=== PATIENT | male | born 1960 ===

== ENCOUNTER 2017-08-22 14:59 | Inpatient (IN) | payer MEDICAID, OTHER ==
[2017-08-22 16:08] LABS: HEMOGLOBIN 15.4 g/dL (12.0-18.0); MEAN PLATELET VOLUME 9.4 fL (7.2-11.7)
[2017-08-22 16:13] LABS: MEAN CELL VOLUME 88.1 fL (80.0-94.0); MEAN CORPUSCULAR HEMOGLOBIN 30.4 pg (27.0-31.0); MEAN CORPUSCULAR HGB CONC 34.5 g/dL (33.0-37.0); RBC 5.08 Mil/uL (4.40-5.90); RED CELL DISTRIBUTION WIDTH 13.1 % (11.5-14.5); WHITE BLOOD COUNT 5.7 K/uL (4.8-10.8)
--- NOTE | 2017-08-22 16:21 | C.PDOC ---
History Of Present Illness <John Couch - Last Filed: 08/22/17 17:34> <Bhumika Garcia - Last Filed: 08/22/17 17:47> 57 yo male w/PMHx of heroin abuse come in request detox. Pt denies depression, suicidal or homocidal ideation. Pt denies any active physical complaints at present time. Ambulate to ED for evaluation, appears AAO#3, appropriate, not in any apparent distress. (Bhumika Garcia) <John Couch - Last Filed: 08/22/17 17:34> History Per: Patient <Bhumika Garcia - Last Filed: 08/22/17 17:47> Time Seen by Provider: 08/22/17 15:25 Chief Complaint (Nursing): Substance Abuse Past Medical History Reviewed: Historical Data, Nursing Documentation, Vital Signs - Medical History PMH: HTN Denies: Diabetes, Hepatitis, HIV, Seizures, Sexually Transmitted Disease Family History: States: Unknown Family Hx - Social History Hx Tobacco Use: Yes Hx Alcohol Use: No Hx Substance Use: Yes - Immunization History Hx Tetanus Toxoid Vaccination: Yes Hx Influenza Vaccination: Yes Hx Pneumococcal Vaccination: Yes <Bhumika Garcia - Last Filed: 08/22/17 17:47> Vital Signs: Last Vital Signs Temp 98.3 F 08/22/17 17:41 Pulse 53 L 08/22/17 17:41 Resp 18 08/22/17 17:41 BP 157/97 H 08/22/17 17:41 Pulse Ox 99 08/22/17 17:41 - [facility] DETOXIFICATION SERVICES FOR SUBSTANCE ABUSE TREATMENT (05/17/16) Review Of Systems Except As Marked, All Systems Reviewed And Found Negative. Constitutional: Negative for: Fever, Chills Eyes: Negative for: Vision Change ENT: Negative for: Throat Pain Cardiovascular: Negative for: Chest Pain Respiratory: Negative for: Cough, Shortness of Breath, Wheezing Gastrointestinal: Negative for: Nausea, Vomiting, Abdominal Pain Genitourinary: Negative for: Incontinence Musculoskeletal: Negative for: Neck Pain, Back Pain Neurological: Negative for: Weakness, Numbness, Altered Mental Status, Headache Psych: Negative for: Suicidal ideation <Bhumika Garcia - Last Filed: 08/22/17 17:47> Physical Exam - Physical Exam Appears: Well, Non-toxic, No Acute Distress Skin: Normal Color, Warm, Dry, No Rash, No Ecchymosis Head: Atraumatic, Normacephalic Eye(s): bilateral: PERRL Nose: No Flaring, No Discharge, No Deformity Oral Mucosa: Moist Throat: No Erythema, No Drooling Neck: Trachea Midline, No Midline Cervical Tenderness, No Paracervical Tenderness, No Step Off Deformity, Supple Cardiovascular: Rhythm Regular Respiratory: No Decreased Breath Sounds, No Accessory Muscle Use, No Rales, No Rhonchi, No Stridor, No Wheezing Gastrointestinal/Abdominal: Soft, No Tenderness, No Distention, No Guarding, No Rebound Back: No CVA Tenderness Extremity: Normal ROM, No Deformity, No Swelling Neurological/Psych: Oriented x3, Normal Speech, Normal Motor, Normal Sensation, Normal Reflexes <Bhumika Garcia - Last Filed: 08/22/17 17:47> ED Course And Treatment - Laboratory Results Result Diagrams: 08/22/17 16:05 08/22/17 16:05 Lab Interpretation: Abnormal (tox + opiates, THC) Pulse Ox Interpretation: Normal Reevaluation Time: 17:34 Reassessment Condition: Unchanged (remains stable) <John Couch - Last Filed: 08/22/17 17:34> - Laboratory Results Result Diagrams: 08/22/17 16:05 08/22/17 16:05 O2 Sat by Pulse Oximetry: 98 Pulse Ox Interpretation: Normal <Bhumika Garcia - Last Filed: 08/22/17 17:47> Medical Decision Making <John Couch - Last Filed: 08/22/17 17:34> <Bhumika Garcia - Last Filed: 08/22/17 17:47> Medical Decision Making: opiate/cannabis abuse (John oCuch) Disposition Doctor Will See Patient In The: Hospital Counseled Patient/Family Regarding: Studies Performed, Diagnosis - Disposition Disposition Time: 18:00 <John Couch - Last Filed: 08/22/17 17:34> <Bhumika Garcia - Last Filed: 08/22/17 17:47> - Disposition Disposition: HOSPITALIZED Condition: GOOD Forms: [facility] (Kyr[place]z) - Clinical Impression Clinical Impression: Opiate abuse, continuous
[2017-08-22 16:22] LABS: URINE BILIRUBIN 1+ (NEGATIVE); URINE BLOOD 1+ (NEGATIVE); URINE CLARITY Hazy (Clear); URINE COLOR Amber (YELLOW); URINE GLUCOSE (UA) NORMAL (Normal); URINE LEUKOCYTE ESTERASE NEG Leu/uL (Negative); URINE PROTEIN 2+ mg/dL (NEGATIVE)
[2017-08-22 16:23] LABS: ALB/GLOB RATIO 1.2 (1.0-2.1); ALBUMIN 4.9 g/dL (3.5-5.0); ALT/SGPT 70 U/L (21-72); AST/SGOT 40 U/L (17-59); BLOOD UREA NITROGEN 12 mg/dL (9-20); CALCIUM 9.4 mg/dl (8.6-10.4); GFR AFRICAN-AMERICAN > 60; GFR NON-AFRICAN AMERICAN > 60
[2017-08-22 16:57] LABS: BARBITURATES, UR NEGATIVE (NEGATIVE); BENZODIAZEPINES, UR NEGATIVE (NEGATIVE); PHENCYCLIDINE, UR NEGATIVE (NEGATIVE)
[2017-08-22 17:30] LABS: OPIATES, UR POSITIVE (NEGATIVE)
[2017-08-22 17:44] LABS: BASO % 2.5 % (0.0-2.0); EOS % 0.4 % (0.0-4.0); LYMPH % 11.9 % (20.0-40.0); MONO % 4.7 % (0.0-10.0); NEUT % 80.5 % (50.0-75.0)
[2017-08-22 17:45] LABS: BASO # 0.1 K/uL (0.0-0.2); LYMPH # 0.6 K/uL (1.0-4.3); MONO # 0.3 K/uL (0.0-0.8); NEUT # 4.3 K/uL (1.8-7.0)
--- NOTE | 2017-08-22 18:16 | PCM.BM ---
<Andrzej Benz - Last Filed: 08/22/17 18:40> Treatment Plan Problems - Problems identified on initial assessmt potential for opiate withdrawal Date Initiated: 08/22/17 Time Initiated: 18:41 Assessment reference: NA Status: Active Treatment assets and liabiliti Patient Assests: ADL independent, negotiates basic needs, cognitively intact Patient Liabilities: substance abuse - Milieu Protocol Maintain good personal hygiene: daily Encourage regular showers, daily Remind patient to perform daily oral care, daily Assist patient to perform ADL's Conduct patient checks and document Observation sheet: Q15 minutes Maintain personal safety: every shift Educate patient to report safety concerns to staff, every shift Monitor environment for contraband/sharps Medication safety: Monitor for expected outcome, potential side effects: every shift, Assess barriers to learning: every shift, Assess readiness for medication education: every shift <Ector Foy - Last Filed: 08/25/17 01:26> - Diagnosis (1) Opioid use disorder, severe, dependence Status: Acute Interventions: 08/25/17 01:26 * Assess 7x/week regarding severity of withdrawal * Educate regarding risks, benefits, side effects and alternatives of medications * Use Motivational Interviewing for abstinence * Use CBT for relapse prevention * Medication management for withdrawal symptoms * Encourage medication assisted treatment (2) Cannabis use disorder, moderate, dependence Status: Acute Interventions: 08/25/17 01:26 * Assess 7x/week regarding severity of withdrawal * Educate regarding risks, benefits, side effects and alternatives of medications * Use Motivational Interviewing for abstinence * Use CBT for relapse prevention * Medication management for withdrawal symptoms * Encourage medication assisted treatment
[2017-08-22] MEDS ORDERED: Aluminum Hydroxide/Magnesium Hydroxide Susp (30 mL) PO PRN (20:12)
--- NOTE | 2017-08-23 11:27 | PCM.PSYCH ---
Initial Psychiatric Evaluation - Initial Psychiatric Evaluation Type of Admission: Voluntary Legal Status: Capacity Chief Complaint (in patient's own words): I need help for my heroin and other substance use. History of Present Illness and Precipitating Events: Patient is a 57 years old, single, part-time employed, male with no psychiatric history, was admitted due to withdrawing from heroin and other substance use. Patient started using heroin at 18 years of age, increased gradually up to 10- 15 bags daily, IV. Last used yesterday, 2 bags. His longest period of abstinence was 11 months from April 2016 to March 2017. Relapsed 4 months ago. Cannabis started around 18 years of age, increased gradually. Currently he was using once a week, 1 g each time. Last used one week ago. He smokes 5-6 cigarettes daily and refused to take nicotine patch. Patient has history of cocaine use in the remote past. Patient was born in [place], moved to [facility] in [place] at 5 years of age with family. He has high school graduation and is working part-time in food processing. Never and has one grown up son. He lives with his son. His height is 5 feet 4 inches and weight is 164 pounds. Current Medications: Active Medications Generic Name Dose Route Start Last Admin Trade Name Freq PRN Reason Stop Dose Admin Al Hydrox/Mg Hydrox/Simethicone 30 ml 08/22/17 20:12 Maalox 30 Ml PO TID PRN Indigestion / Heartburn Dicyclomine HCl 10 mg 08/22/17 20:13 Bentyl PO Q6 PRN Abdominal Cramp Gabapentin 300 mg 08/22/17 20:15 08/23/17 09:15 Neurontin PO 300 mg BID DINO Administration Ibuprofen 400 mg 08/22/17 20:15 08/23/17 08:03 Motrin Tab PO 400 mg Q6 PRN Administration Pain, moderate (4-7) Loperamide HCl 2 mg 08/22/17 20:12 Imodium PO Q8 PRN Diarrhea Methadone HCl 15 mg 08/23/17 10:00 08/23/17 09:15 Methadone PO 08/26/17 09:59 15 mg DAILY DINO Administration Taper Ondansetron HCl 4 mg 08/22/17 20:12 Zofran Tab PO Q8 PRN Nausea/Vomiting Quetiapine Fumarate 50 mg 08/23/17 22:00 Seroquel PO HS DINO Past Psychiatric History - Past Psychiatric History History of Abuse: None reported History of ETOH/Drug Use: See HPI History of Family Illness: None reported Pertinent Medical Hx (Current Medical&Sleep Prob, Allergies): Allergies Allergy/AdvReac Type Severity Reaction Status Date / Time No Known Allergies Allergy Unverified 08/22/17 15:14 No Known Home Med 08/22/17 Hypertension Review of Systems - Psychiatric Psychiatric: Anxiety, Other Mental Status Examination - Personal Presentation Personal Presentation: Looks stated age - Affect Affect: Other (Appropriate) - Motor Activity Motor Activity: Calm - Reliability in Providing Information Reliability in Providing Information: Fair - Speech Speech: Organized - Mood Mood: Anxious - Formal Thought Process Formal Thought Process: No Impairment - Hallucinations/Delusions Hallucinations: Other (None reported) Delusions: Other - Obsessions/Compulsions Obsessions: None Compulsions: None - Cognitive Functions Orientation: Person, Place, Situation, Time Sensorium: Alert Attention/Concentration: Attentive Abstract Thinking: [place] Estimate of Intelligence: Average Judgement: Intact, as evidence by: Insight regarding need for hospitalization Memory: Recent intact, as evidence by: Ability to recall events of the day, Remote intact, as evidenced by: Ability to recall historical events - Risk Risk: Withdrawal, Diminished functioning - Strength & Assets Inventory Strength & Assets Inventory: Family support, Employment status, Cooperative - Limitations Limitations: Other DSM 5 DX - DSM 5 DSM 5 Diagnosis: Opiate use disorder severe Cannabis use disorder moderate - Recommended/Plan of Treatment Treatment Recommendations and Plan of Treatment: Patient education Supportive therapy CBT for relapse prevention MRI for abstinence We'll start methadone taper for opiate withdrawal symptoms. Patient preferred methadone over Subutex. Other when necessary medications. Patient wants to go to long-term rehabilitation after discharge from the hospital for follow-up care. Projected ELOS: 4-5 days - Smoking Cessation Smoking Cessation Initiated: No Reason for not providing: Patient refused
--- NOTE | 2017-08-24 07:28 | PCM.PYCHPN ---
Psychiatric Progress Note - Psychiatric Progress Note Patient seen today, length of contact: 15 min Patient Chief Complaint: I am still withdrawing Problems Identified/Issues Discussed: Patient seen and evaluated, chart reviewed and discussed with the nurse. Patient still reports withdrawal symptoms including nausea, headaches, cramps and sweating. He reports irritable mood but denies any feelings of hopelessness and helplessness. He denies any SI/HI/AVH. Patient remained isolated, confined and withdrawn. He is taking medication and denies any side effects. He needs more time for stabilization. Supportive therapy and psychoeducation were given. Medication Change: Yes (methadone taper) Medical Record Reviewed: Yes Mental Status Examination - Cognitive Function Orientation: Person, Place, Situation, Time Memory: Intact Attention: WNL Concentration: Poor Association: WNL Fund of Knowledge: Poor - Mood Mood: Anxious - Affect Affect: Constricted - Speech Speech: Soft - Formal Thought Process Formal Thought Process: No Impairment - Suicidal Ideation Suicidal Ideation: No - Homicidal Ideation Homicidal Ideation: No Goal/Treatment Plan - Goal/Treatment Plan Need for Continued Stay: Severe depression anxiety, Severe functional impairment Progress Toward Problem(s) and Goals/Treatment Plan: Opiate use disorder severe Cannabis use disorder moderate Patient education Supportive therapy CBT for relapse prevention MRI for abstinence We'll start methadone taper for opiate withdrawal symptoms. Patient preferred methadone over Subutex. Other when necessary medications. Patient wants to go to long-term rehabilitation after discharge from the hospital for follow-up care. - Smoking Cessation Smoking Cessation Initiated: No
--- NOTE | 2017-08-25 13:48 | PCM.PYCHPN ---
Psychiatric Progress Note - Psychiatric Progress Note Patient seen today, length of contact: 15 min Patient Chief Complaint: "I am still withdrawing." Problems Identified/Issues Discussed: The patient is seen, chart reviewed, case discussed with staff. Support given, CBT and UT used briefly. No new symptoms reported, improving slowly and needs more time. He states he is sleeping well. No side effects from medications, risk discussed. After care discussed. Medication Change: Yes (methadone taper) Medical Record Reviewed: Yes Mental Status Examination - Cognitive Function Orientation: Person, Place, Situation, Time Memory: Intact Attention: WNL Concentration: Poor Association: WNL Fund of Knowledge: Poor - Mood Mood: Anxious - Affect Affect: Constricted - Speech Speech: Soft - Formal Thought Process Formal Thought Process: No Impairment - Suicidal Ideation Suicidal Ideation: No - Homicidal Ideation Homicidal Ideation: No Goal/Treatment Plan - Goal/Treatment Plan Need for Continued Stay: Severe depression anxiety, Severe functional impairment Progress Toward Problem(s) and Goals/Treatment Plan: Continue medications Support and psychoeducation daily Attend groups and activities daily After care planning by NEEL
[2017-08-26 06:20] VITALS: TEMP 98.6
--- NOTE | 2017-08-26 08:43 | PCM.PYCHDC ---
Mental Status Examination - Mental Status Examination Orientation: Person, Place, Situation, Time Memory: Intact Mood: Anxious Affect: Constricted Speech: Appropriate Attention: WNL Concentration: WNL Association: WNL Fund of Knowledge: WNL Formal Thought Process: No Impairment Suicidal Ideation: No Current Homicidal Ideation?: No Discharge Summary - Discharge Note Reason for Hospitalization: Heroin detox Consultations:: List each consultation separately and include: 1. Reason for request. 2. Findings. 3. Follow-up Summary of Hospital Course include:: 1. Description of specific treatment plan utilized for patients during their course of treatmen. 2. Summarize the time- course for resolution of acute symptoms and/or regressed behaviors. 3. Describe issues identified and worked on during hospitalization. 4. Describe medication utilized. 5. Describe medical problems identified and treated. 6. Reassessment of suicide risk Summary of Hospital Course: The pt was admitted and started on treatment with psychotherapy, support, psychoeducation and medications. WI and CBT used. The pt attended groups and activities, as well as milieu therapy. All the risks and benefits of medications are discussed and the patient understood and agreed. The pt improved with the treatments provided. After care discussed with the patient. [facility] - Final Diagnosis (DSM 5) Condition upon Discharge: GOOD DSM 5: Opioid withdrawal Opioid use disorder severe Cannabis use disorder moderate Disposition: HOME/ ROUTINE Follow-up Treatment Plan: Continue below medications after discharge. Follow after care plan as discussed. Use relapse prevention skills Return to ER or call 911 if suicidal, homicidal or symptoms relapse. Stay away from stress, alcohol and drugs. See primary doctor regularly and get labs. Prescriptions/Medication Reconciliation: Gabapentin [Neurontin] 300 mg PO BID #60 cap QUEtiapine [SEROquel] 50 mg PO HS #30 tab - Smoking Cessation Smoking Cessation Medication prescribed: No - Antipsychotic Medications Pt discharged on 2 or more routine antipsychotic medications: No
[2017-08-26 09:00] VITALS: BP 142/82; PULSE 56; RESP 20; O2SAT 100
== END 2017-08-26 10:00 | disposition home or self-care (01) | DRG 895 ==
LOC: C.ER 14:59 → C.7D 17:35
PROC: HZ2ZZZZ Detoxification Services for Substance Abuse Treatment (ICD-10-PCS; principal; 2017-08-22)
PROC: HZ52ZZZ Individual Psychotherapy for Substance Abuse Treatment, Cognitive-Behavioral (ICD-10-PCS; 2017-08-22)
PROC: HZ59ZZZ Individual Psychotherapy for Substance Abuse Treatment, Supportive (ICD-10-PCS; 2017-08-22)
PROC: HZ56ZZZ Individual Psychotherapy for Substance Abuse Treatment, Psychoeducation (ICD-10-PCS; 2017-08-22)
PROC: HZ42ZZZ Group Counseling for Substance Abuse Treatment, Cognitive-Behavioral (ICD-10-PCS; 2017-08-22)
PROC: HZ46ZZZ Group Counseling for Substance Abuse Treatment, Psychoeducation (ICD-10-PCS; 2017-08-22)
DX: F11.23 Opioid dependence with withdrawal (principal); F12.20 Cannabis dependence, uncomplicated; F17.210 Nicotine dependence, cigarettes, uncomplicated; F41.8 Other specified anxiety disorders